=== PATIENT | male | born 1970 | race African-American/Black ===

== ENCOUNTER 2019-04-08 00:28 | Inpatient (IN) | payer SELFPAY ==
[~2019-04-08] VITALS: Ht 175.3 cm; Wt 132.6 kg
[2019-04-08] MEDS ORDERED: SODIUM CHLORIDE 0.9% 1,000 ML IV ONE (00:58)
[2019-04-08 01:36] LABS: BASOPHILS % 0.4 % (0.0-2.0); EOSINOPHILS % 2.1 % (0.0-5.0); HEMATOCRIT. 48.2 % (42.0-52.0); HEMOGLOBIN. 16.2 g/dL (14.0-18.0); LYMPHOCYTES % 18.7 % (20.0-50.0); MEAN CORPUSCULAR HEMOGLOBIN 31.3 pg (28.0-32.0); MEAN CORPUSCULAR VOLUME 93.1 fL (80.0-94.0); MEAN PLATELET VOLUME 10.4 fl (7.4-10.4); MONOCYTES % 6.7 % (2.0-8.0); NEUTROPHILS % 72.1 % (40.0-76.0); PLATELET 121 x1000/uL (130-400); RED BLOOD CELL COUNT 5.17 mill/uL (4.7-6.1); RED CELL DISTRIBUTION WIDTH 13.6 % (11.6-14.6)
[2019-04-08 01:43] LABS: CHLORIDE 104 mEq/L (98-107)
[2019-04-08 01:48] LABS: ETHANOL BLOOD < 10 mg/dL
[2019-04-08 01:49] LABS: BETA HYDROXYBUTYRATE 0.1 mMol/L (0.0-0.3)
[2019-04-08 02:19] LABS: *AMPHETAMINES SCREEN URINE NEGATIVE (NEGATIVE); *BARBITURATES SCREEN URINE NEGATIVE (NEGATIVE); *COCAINE SCREEN URINE NEGATIVE (NEGATIVE)
[2019-04-08 02:21] LABS: CANNABINOID URINE SCREEN PRESUMTIVE POSITIVE (NEGATIVE); METHADONE URINE SCREEN NEGATIVE (NEGATIVE); OPIATES URINE SCREEN NEGATIVE (NEGATIVE); PHENCYCLIDINE URINE SCREEN NEGATIVE (NEGATIVE)
[2019-04-08 02:24] LABS: *BENZODIAZEPINES SCREEN URINE NEGATIVE (NEGATIVE)
[2019-04-08] MEDS ORDERED: SODIUM CHLORIDE 0.9% 1,000 ML IV NR (02:30)
[2019-04-08] MEDS ORDERED: INSULIN LISPRO 100 UNITS/ML SUBCUT NR (02:30)
[2019-04-08 02:35] LABS: CLARITY URINE CLEAR (CLEAR); COLOR URINE YELLOW (YELLOW); KETONES URINE NEGATIVE (NEGATIVE); LEUKOCYTE ESTERASE URINE NEGATIVE (NEGATIVE); NITRITE URINE NEGATIVE (NEGATIVE); OCCULT BLOOD URINE 1+ (NEGATIVE); PROTEIN URINE TRACE (NEGATIVE); SPECIFIC GRAVITY URINE 1.025 (1.005-1.030); UROBILINOGEN URINE 0.2 E.U./dL (0.2-1.0)
[2019-04-08] MEDS ORDERED: DEXTROSE 50% WATER 50ML SYRINGE IV PRN (07:45)
[2019-04-08] MEDS ORDERED: CLONIDINE 0.1MG TABLET PO PRN (07:45)
[2019-04-08] MEDS: METOPROLOL TARTRATE 50MG TABLET PO SCH ×2 (08:19→22:00)
[2019-04-08] MEDS: INSULIN LISPRO 100 UNITS/ML SUBCUT SCH ×4 (08:19→23:24)
[2019-04-08] MEDS: BLOOD SUGAR DIAGNOSTIC STRIP TEST SCH ×4 (08:20→21:00)
[2019-04-08 10:00] VITALS: BP 176/73
[2019-04-08] MEDS ORDERED: ACETAMINOPHEN 325MG TABLET PO PRN (12:30)
[2019-04-08] MEDS ORDERED: ONDANSETRON HCL 4MG/2ML INJ IV PRN (12:30)
[2019-04-08] MEDS ORDERED: LISI10TA5 MT (15:49)
[2019-04-08] MEDS ORDERED: INSLIS SUBCUT (15:49)
[2019-04-08] MEDS ORDERED: NPH,100I SQ (15:49)
[2019-04-08] MEDS ORDERED: HYDR12.529 MT (15:49)
[2019-04-08 16:00] VITALS: BP 134/75
[2019-04-08 20:00] VITALS: BP 127/75
[2019-04-08] MEDS: AMLODIPINE 5MG TABLET PO SCH (21:58)
[2019-04-08] MEDS: INSULIN GLARGINE UD 100 UNITS/ML SYR SUBCUT SCH (22:01)
[2019-04-09] VITALS: BP 146/87
[2019-04-09 04:00] VITALS: BP 144/83
[2019-04-09 06:48] LABS: BASOPHILS % 0.3 % (0.0-2.0); EOSINOPHILS % 3.3 % (0.0-5.0); HEMATOCRIT. 47.9 % (42.0-52.0); HEMOGLOBIN. 15.8 g/dL (14.0-18.0); LYMPHOCYTES % 28.3 % (20.0-50.0); MEAN CORPUSCULAR HEMOGLOBIN 30.2 pg (28.0-32.0); MEAN CORPUSCULAR VOLUME 91.6 fL (80.0-94.0); MEAN PLATELET VOLUME 10.8 fl (7.4-10.4); MONOCYTES % 6.9 % (2.0-8.0); NEUTROPHILS % 61.2 % (40.0-76.0); PLATELET 122 x1000/uL (130-400); RED BLOOD CELL COUNT 5.23 mill/uL (4.7-6.1)
[2019-04-09 06:55] LABS: CHLORIDE 108 mEq/L (98-107)
[2019-04-09] MEDS: BLOOD SUGAR DIAGNOSTIC STRIP TEST SCH ×2 (07:10→11:36)
[2019-04-09 08:00] VITALS: BP 139/85
[2019-04-09] MEDS: AMLODIPINE 5MG TABLET PO SCH (08:12)
[2019-04-09] MEDS: METOPROLOL TARTRATE 50MG TABLET PO SCH (08:12)
[2019-04-09] MEDS: INSULIN LISPRO 100 UNITS/ML SUBCUT SCH ×2 (08:15→12:20)
[2019-04-09] MEDS: INSULIN GLARGINE UD 100 UNITS/ML SYR SUBCUT SCH (10:03)
[2019-04-09] MEDS ORDERED: INSULIN LISPRO 100 UNITS/ML SUBCUT SCH (11:45)
[2019-04-09 12:00] VITALS: BP 140/86
[2019-04-09 15:24] VITALS: BP 147/81
[2019-04-09 15:45] VITALS: BP 147/81
== END 2019-04-09 16:40 | disposition home or self-care (01) | DRG 469 ==
LOC: ER 00:28 → 5WST 03:17 → ENRESERV 07:56
PROVIDERS: ADMIT Internal Medicine Nephrology; ATTEND Internal Medicine Nephrology
DX: N17.0 Acute kidney failure with tubular necrosis (principal); G93.41 Metabolic encephalopathy; E66.01 Morbid (severe) obesity due to excess calories; E11.65 Type 2 diabetes mellitus with hyperglycemia; I10 Essential (primary) hypertension; F12.90 Cannabis use, unspecified, uncomplicated; E87.1 Hypo-osmolality and hyponatremia; Z71.3 Dietary counseling and surveillance; Z68.41 Body mass index [BMI] 40.0-44.9, adult
CPT/HCPCS: 36415; 71045; 80048; 80305; 80320; 82010; 82140; 82962; 83605; 84443; 93005; 93306; 93970; J1815; J7030; G0480